=== PATIENT | female | born 1980 | race American Indian/Alaskan Native ===

== ENCOUNTER 2017-07-06 14:13 | Emergency (ER) | payer SELFPAY ==
[2017-07-06 14:44] VITALS: BP 114/75
[2017-07-06] MEDS ORDERED: TORADOL IM ONE (18:34)
--- NOTE | 2017-07-06 18:54 | Emergency Department Report ---
Blank Doc - Documentation Documentation: Patient is a 37-year-old female who is complaining of 3 weeks of left shoulder pain radiation down to the arm. She has decreased range of motion. Patient denies any trauma. X-ray will be performed. Of the cervical spine. This most likely represents a cervical radiculopathy
--- NOTE | 2017-07-06 19:23 | Emergency Department Report ---
ED Back Pain/Injury HPI - General Chief Complaint: Extremity Injury, Upper Stated Complaint: LEFT ARM PAIN Time Seen by Provider: 07/06/17 18:31 Source: patient Limitations: No Limitations - Related Data Allergies Allergy/AdvReac Type Severity Reaction Status Date / Time guanfacine Allergy Hives Verified 07/06/17 14:40 ED Review of Systems ROS: Stated complaint: LEFT ARM PAIN Other details as noted in HPI ED Past Medical Hx - Past Medical History Previous Medical History?: No - Surgical History Past Surgical History?: Yes Hx Cholecystectomy: Yes Additional Surgical History: tubal ligation - Social History Smoking Status: Never Smoker Substance Use Type: None ED Physical Exam - General Limitations: No Limitations ED Course Vital Signs 07/06/17 14:40 Temperature 98.3 F Pulse Rate 78 Respiratory 18 Rate Blood Pressure 114/75 O2 Sat by Pulse 99 Oximetry Critical care attestation.: If time is entered above; I have spent that time in minutes in the direct care of this critically ill patient, excluding procedure time. ED Disposition Condition: Stable
--- NOTE | 2017-07-06 19:27 | Emergency Department Report ---
ED Neck Pain/Injury HPI - General Chief Complaint: Extremity Injury, Upper Stated Complaint: LEFT ARM PAIN Time Seen by Provider: 07/06/17 18:31 Mode of arrival: Ambulatory Limitations: No Limitations - History of Present Illness Initial Comments: This is a 37-year-old female nontoxic, well nourished in appearance, no acute signs of distress presents to the ED with c/o of left upper back pain radiating to left shoulder and upper arm x3 weeks. Patient denies any trauma to the area. Patient denies any chest pain, shortness of breathe, fever, chills, headache, nausea, vomiting, back pain, stiff neck. Patient stated has decreased range of motion due to the pain. Patient denies any numbness of tingling. Patient stated pain is aching and a shooting sensation to the upper arm left side. Patient stated allergies to guanfacine. Patient denies significant past medical history. MD Complaint: upper back pain -: week(s) (3) Radiation: left shoulder Severity: mild Severity scale (0 -10): 8 Quality: aching Consistency: intermittent Improves With: immobilization Worsens With: movement of extremity, movement of neck Associated Symptoms: none. denies: headache, fever, numbness, tingling, weakness, vertigo, difficulty walking, swollen glands, difficulty swallowing, nausea, vomiting Treatments Prior to Arrival: none - Related Data Previous Rx's Medication Instructions Recorded Last Taken Type Cyclobenzaprine [Flexeril] 10 mg PO QHS PRN #7 tablet 07/06/17 Unknown Rx Ibuprofen [Motrin] 600 mg PO Q8H PRN #30 tablet 07/06/17 Unknown Rx Allergies Allergy/AdvReac Type Severity Reaction Status Date / Time guanfacine Allergy Hives Verified 07/06/17 14:40 ED Review of Systems ROS: Stated complaint: LEFT ARM PAIN Other details as noted in HPI Constitutional: denies: chills, fever Eyes: denies: eye pain, eye discharge, vision change ENT: denies: ear pain, throat pain Respiratory: denies: cough, shortness of breath, wheezing Cardiovascular: denies: chest pain, palpitations Endocrine: no symptoms reported Gastrointestinal: denies: abdominal pain, nausea, diarrhea Genitourinary: denies: urgency, dysuria, discharge Musculoskeletal: denies: back pain, joint swelling, arthralgia Skin: denies: rash, lesions Neurological: denies: headache, weakness, paresthesias Psychiatric: denies: anxiety, depression Hematological/Lymphatic: denies: easy bleeding, easy bruising ED Past Medical Hx - Past Medical History Previous Medical History?: No - Surgical History Past Surgical History?: Yes Hx Cholecystectomy: Yes Additional Surgical History: tubal ligation - Social History Smoking Status: Never Smoker Substance Use Type: None - Medications Home Medications: Home Medications Medication Instructions Recorded Confirmed Last Taken Type Cyclobenzaprine [Flexeril] 10 mg PO QHS PRN #7 tablet 07/06/17 Unknown Rx Ibuprofen [Motrin] 600 mg PO Q8H PRN #30 tablet 07/06/17 Unknown Rx ED Physical Exam - General Limitations: No Limitations General appearance: alert, in no apparent distress - Head Head exam: Present: atraumatic, normocephalic - Eye Eye exam: Present: normal appearance, PERRL, EOMI Pupils: Present: normal accommodation - ENT ENT exam: Present: normal exam, normal orophraynx, mucous membranes moist - Neck Neck exam: Present: normal inspection, tenderness, full ROM. Absent: meningismus, lymphadenopathy - Respiratory Respiratory exam: Present: normal lung sounds bilaterally. Absent: respiratory distress, wheezes, rales, rhonchi, stridor, chest wall tenderness, accessory muscle use, decreased breath sounds, prolonged expiratory - Cardiovascular Cardiovascular Exam: Present: regular rate, normal rhythm, normal heart sounds. Absent: bradycardia, tachycardia, irregular rhythm, systolic murmur, diastolic murmur, rubs, gallop - GI/Abdominal GI/Abdominal exam: Present: soft, normal bowel sounds. Absent: distended, tenderness, guarding, rebound, rigid, diminished bowel sounds - Rectal Rectal exam: Present: deferred - Extremities Exam Extremities exam: Present: normal inspection, full ROM, normal capillary refill. Absent: tenderness - Back Exam Back exam: Present: normal inspection, full ROM, paraspinal tenderness (left cervical region). Absent: tenderness, CVA tenderness (R), CVA tenderness (L), muscle spasm, vertebral tenderness, rash noted - Expanded Back Exam Expanded Back exam: Absent: saddle anesthesia Back exam: Negative Straight Leg Raising: Left, Right - Neurological Exam Neurological exam: Present: alert, oriented X3 - Psychiatric Psychiatric exam: Present: normal affect, normal mood - Skin Skin exam: Present: warm, dry, intact, normal color. Absent: rash ED Course Vital Signs 07/06/17 14:40 Temperature 98.3 F Pulse Rate 78 Respiratory 18 Rate Blood Pressure 114/75 O2 Sat by Pulse 99 Oximetry - Reevaluation(s) Reevaluation #1: 07/06/17 19:26 Patient is speaking in full sentences with no signs of distress noted. - Consultations Consultation #1: 07/06/17 19:26 Patient has been consulted with Dr. Chen about patient history, physical exam and examined and screened patient and agrees to ED plan of care and discharge plan of care. ED Medical Decision Making - Medical Decision Making This is a 37-year-old female that presents with cervical radiculopathy. Patient is stable was examined by me. There is no spinal tenderness. There is no cauda equina syndrome during examination. No bladder or bowel instability. Patient received Toradol 60 mg IM in the ED which preceded his symptoms has resolved and subsided. Patient is discharged with muscle relaxant and Motrin. Patient was instructed not to operate any machinery while taking muscle relaxant as they cause her drowsiness. Patient was referred to Follow-up with a primary care doctor in 3-5 days or if symptoms worsen and continue return to emergency room as soon as possible. At time of discharge, the patient does not seem toxic or ill in appearance. No acute signs of distress noted. Patient agrees to discharge treatment plan of care. No further questions noted by the patient. This chart is dictated with using [employer] Critical care attestation.: If time is entered above; I have spent that time in minutes in the direct care of this critically ill patient, excluding procedure time. ED Disposition Clinical Impression: Cervical radiculopathy Disposition: DC-01 TO HOME OR SELFCARE Is pt being admited?: No Does the pt Need Aspirin: No Condition: Stable Instructions: Cervical Radiculopathy (ED), Cyclobenzaprine (By mouth), Ibuprofen (By mouth) Additional Instructions: Follow-up with your primary care doctor in 3-5 days or if symptoms worsen such as bladder or bowel stability, chest pain, short of breath, numbness or tingling sensation in extremities, headache, dizziness, visual changes, nausea vomiting, or abdominal pain, return back to emergency room as was possible. Take ibuprofen and Flexeril as prescribed. Do not operate heavy machinery while taking Flexeril due to sedation Prescriptions: Cyclobenzaprine [Flexeril] 10 mg PO QHS PRN #7 tablet PRN Reason: Muscle Spasm Ibuprofen [Motrin] 600 mg PO Q8H PRN #30 tablet PRN Reason: Pain Referrals: PRIMARY CARE, [Referring] - 3-5 Days GINA WALSH MD [Staff Physician] - 3-5 Days [facility] [Outside] - 3-5 Days [facility] [Outside] - 3-5 Days Forms: Work/School Release Form(ED)
--- NOTE | 2017-07-06 20:09 | XRay Report ---
FINAL REPORT EXAM: XR SPINE CERVICAL 2-3V HISTORY: left cervical radiculopathy TECHNIQUE: Cervical spine 3 views PRIORS: None. FINDINGS: Vertebral bodies demonstrate normal height and alignment. The disk spaces are within normal limits. The facet joints demonstrate normal alignment. The spinous processes are intact. Craniocervical junction is unremarkable. C1 and C2 are intact. IMPRESSION: Negative cervical spine series.
== END 2017-07-06 20:35 | disposition home or self-care (01) ==
LOC: ED 14:13
DX: M54.12 Radiculopathy, cervical region (principal); Z90.49 Acquired absence of other specified parts of digestive tract; Z98.51 Tubal ligation status; Z88.8 Allergy status to other drugs, medicaments and biological substances
CPT/HCPCS: 72040; 93005; 93010; 96372; 99283; J1885

== ENCOUNTER 2020-02-09 00:47 | Emergency (ER) | payer MEDICAID ==
[2020-02-09 01:43] VITALS: BP 130/84
--- NOTE | 2020-02-09 02:15 | XRay Report ---
RIGHT ANKLE 3 VIEWS INDICATION / CLINICAL INFORMATION: right ankle pain. COMPARISON: None available. FINDINGS: BONES/JOINT(S): No acute fracture or subluxation. No significant degenerative changes. SOFT TISSUES: There is soft tissue swelling in the lateral ankle. ADDITIONAL FINDINGS: None. Signer Name: Stanley Wheeler MD Signed: 02/09/2020 2:11 AM Workstation Name: [email or web address]
[2020-02-09] MEDS ORDERED: HYDROcodone/ACETAMINOPHEN 5-325 MG TAB PO ONE (02:38)
--- NOTE | 2020-02-09 03:04 | Emergency Department Report ---
ED Lower Extremity HPI - General Chief Complaint: Extremity Injury, Lower Stated Complaint: ANKLE INJURY Time Seen by Provider: 02/09/20 02:40 Source: patient Mode of arrival: Ambulatory Limitations: No Limitations - History of Present Illness Initial Comments: Patient is a 40-year-old female who presents for right ankle pain status post falling down 2 steps tonight. Patient states she was traversing steps at home and missed the last 2 steps causing fall to ground and twisting ankle. . There is no LOC patient states decreased weightbearing however patient drove self to ED and ambulated to room under her own power. Now with pain and swelling to the right lateral ankle, there is no obvious deformity patient states pain is 5/10. Pain is exacerbated by attempted weightbearing. Pain is sharp and relieved by nothing. There is no numbness or tingling. MD Complaint: ankle injury - Related Data Previous Rx's Medication Instructions Recorded Last Taken Type Cyclobenzaprine [Flexeril] 10 mg PO QHS PRN #7 tablet 07/06/17 Unknown Rx Ibuprofen [Motrin] 600 mg PO Q8H PRN #30 tablet 07/06/17 Unknown Rx Naproxen 500 mg PO BID PRN #30 tablet 02/09/20 Unknown Rx Allergies Allergy/AdvReac Type Severity Reaction Status Date / Time guanfacine Allergy Hives Verified 07/06/17 14:40 ED Review of Systems ROS: Stated complaint: ANKLE INJURY Other details as noted in HPI Constitutional: denies: chills, fever Eyes: denies: eye pain, eye discharge, vision change ENT: denies: ear pain, throat pain Respiratory: denies: cough, shortness of breath, wheezing Cardiovascular: denies: chest pain, palpitations Endocrine: no symptoms reported Gastrointestinal: as per HPI Genitourinary: denies: urgency, dysuria, discharge Musculoskeletal: joint swelling (right lateral ankle ) Skin: denies: rash, lesions Neurological: denies: headache, weakness, paresthesias Psychiatric: denies: anxiety, depression Hematological/Lymphatic: denies: easy bleeding, easy bruising ED Past Medical Hx - Past Medical History Previous Medical History?: No - Surgical History Past Surgical History?: Yes Hx Cholecystectomy: Yes Additional Surgical History: tubal ligation. Left shoulder surgery - Social History Smoking Status: Current Every Day Smoker Substance Use Type: None - Medications Home Medications: Home Medications Medication Instructions Recorded Confirmed Last Taken Type Cyclobenzaprine [Flexeril] 10 mg PO QHS PRN #7 tablet 07/06/17 Unknown Rx Ibuprofen [Motrin] 600 mg PO Q8H PRN #30 tablet 07/06/17 Unknown Rx Naproxen 500 mg PO BID PRN #30 tablet 02/09/20 Unknown Rx ED Physical Exam - General Limitations: No Limitations General appearance: alert, in no apparent distress - Head Head exam: Present: atraumatic, normocephalic - Eye Eye exam: Present: normal appearance - ENT ENT exam: Present: mucous membranes moist - Neck Neck exam: Present: normal inspection - Respiratory Respiratory exam: Present: normal lung sounds bilaterally. Absent: respiratory distress - Cardiovascular Cardiovascular Exam: Present: regular rate, normal rhythm, normal heart sounds. Absent: systolic murmur, diastolic murmur, rubs, gallop - GI/Abdominal GI/Abdominal exam: Present: soft, normal bowel sounds. Absent: distended, tenderness, bruit, hernia - Rectal Rectal exam: Present: deferred - Extremities Exam Extremities exam: Present: normal inspection, full ROM, tenderness (right lateral ankle ), joint swelling (right lateral ankle ) - Expanded Lower Extremity Exam Right Ankle exam: Present: full ROM, tenderness, swelling. Absent: abrasion, laceration, ecchymosis, deformity, crepidus, dislocation, erythema, anterior draw sign Foot/Toe exam: Absent: tenderness, swelling Neuro vascular tendon exam: Absent: pulse deficit, motor deficit, sensory deficit, tendon deficit Gait: Positive: observed and limited by pain - Back Exam Back exam: Present: normal inspection, full ROM. Absent: tenderness - Neurological Exam Neurological exam: Present: alert, oriented X3, CN II-XII intact - Expanded Neurological Exam Expanded Patient oriented to: Present: person, place, time Speech: Present: fluid speech Motor strength exam: RUE: 5, LUE: 5, RLE: 5, LLE: 5 DTR: ankle (R): 2+, ankle (L): 2+ Best Eye Response ([place]): (4) open spontaneously Best Motor Response ([place]): (6) obeys commands Best Verbal Response ([place]): (5) oriented [place] Total: 15 - Psychiatric Psychiatric exam: Present: normal affect, normal mood - Skin Skin exam: Present: warm ED Course Vital Signs 02/09/20 01:40 Temperature 98.1 F Pulse Rate 84 Respiratory 18 Rate Blood Pressure 130/84 O2 Sat by Pulse 98 Oximetry ED Lower Extremity MDM - Radiology Data Radiology results: report reviewed, image reviewed Findings Reporting MD: Stanley Wheeler Dictation Time: February 09, 2020 01:11 Senior Net Engineer: Not available Medical Equipment Technician Date: RIGHT ANKLE 3 VIEWS INDICATION / CLINICAL INFORMATION: right ankle pain. COMPARISON: None available. FINDINGS: BONES/JOINT(S): No acute fracture or subluxation. No significant degenerative changes. SOFT TISSUES: There is soft tissue swelling in the lateral ankle. ADDITIONAL FINDINGS: None. Signer Name: Stanley Wheeler MD Signed: 02/09/2020 1:11 AM Workstation Name: [id number] - Medical Decision Making X-ray no fracture mild soft tissue swelling , this is an ankle sprain. Plan crutches, Joaquin wrap, rice therapy, NSAIDs follow-up with PCP in 2 to 3 days. Patient verbalizes agreement and understanding with discharge plan. Patient DC'd home in stable condition at this time. Critical care attestation.: If time is entered above; I have spent that time in minutes in the direct care of this critically ill patient, excluding procedure time. ED Disposition Clinical Impression: Ankle sprain Qualifiers: Encounter type: initial encounter Involved ligament of ankle: unspecified ligament Laterality: right Qualified Code(s): S93.401A - Sprain of unspecified ligament of right ankle, initial encounter Disposition: DC-01 TO HOME OR SELFCARE Is pt being admited?: No Does the pt Need Aspirin: No Condition: Stable Instructions: How to Use a Stirrup Ankle Brace, [id number], Ankle Sprain, Elastic Bandage and RICE Therapy Prescriptions: Naproxen 500 mg PO BID PRN #30 tablet PRN Reason: pain Referrals: JOSE MIGUEL WANG MD [Primary Care Provider] - 3-5 Days Forms: Work/School Release Form(ED) Time of Disposition: 03:06
== END 2020-02-09 03:00 | disposition home or self-care (01) ==
LOC: ED 00:47
DX: S93.401A Sprain of unspecified ligament of right ankle, initial encounter (principal); F17.200 Nicotine dependence, unspecified, uncomplicated; Z90.49 Acquired absence of other specified parts of digestive tract; Z98.51 Tubal ligation status; Z79.899 Other long term (current) drug therapy; Z88.8 Allergy status to other drugs, medicaments and biological substances; W10.9XXA Fall (on) (from) unspecified stairs and steps, initial encounter; Y93.89 Activity, other specified; Y92.89 Other specified places as the place of occurrence of the external cause; Y99.8 Other external cause status

== ENCOUNTER 2021-01-22 00:23 | Emergency (ER) | payer MEDICAID ==
[2021-01-22 01:08] VITALS: BP 150/90
--- NOTE | 2021-01-22 02:08 | XRay Report ---
XR finger(s) 2+V LT INDICATION: Injury. COMPARISON: No relevant prior imaging study available. FINDINGS: There are displaced fractures of the bases of the proximal phalanges of the left ring and little fing ers with significant dorsal angulation. No intra-articular extension is seen. No dislocation. There is mild soft tissue swelling about the fractures. IMPRESSION: 1. Fractures at the bases of the left little and ring finger proximal phalanges with dorsal angulatio n. Signer Name: Solomon Denise MD Signed: 01/22/2021 2:04 AM Workstation Name: [id number]
[2021-01-22] MEDS ORDERED: oxyCODONE /ACETAMINOPHEN 5-325MG TAB PO ONE (02:46)
[2021-01-22] MEDS ORDERED: IBUPROFEN 600 MG TAB PO ONE (02:46)
[2021-01-22] MEDS ORDERED: ONDANSETRON 4 MG ODT TAB PO ONE (02:46)
[2021-01-22] MEDS ORDERED: LIDOCAINE (1%) 10 MG/1 ML VIAL 20 ML MDV INFILTRATI ONE (02:47)
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
== END 2021-01-22 05:45 | disposition home or self-care (01) ==
LOC: ED 00:23
DX: S62.615A Displaced fracture of proximal phalanx of left ring finger, initial encounter for closed fracture (principal); S62.617A Displaced fracture of proximal phalanx of left little finger, initial encounter for closed fracture; S60.222A Contusion of left hand, initial encounter; Z98.51 Tubal ligation status; Z98.890 Other specified postprocedural states; Z88.8 Allergy status to other drugs, medicaments and biological substances; Y93.89 Activity, other specified; Y92.89 Other specified places as the place of occurrence of the external cause; Y99.8 Other external cause status
CPT/HCPCS: 99283; 99284; Q0162

== ENCOUNTER 2021-09-08 05:44 | Emergency (ER) | payer MEDICAID ==
[2021-09-08 05:55] VITALS: BP 106/77
--- NOTE | 2021-09-08 06:51 | XRay Report ---
RIGHT FOREARM 2 VIEW(S) INDICATION / CLINICAL INFORMATION: injury COMPARISON: None available. FINDINGS: No fracture, dislocation, or significant soft tissue abnormality is demonstrated. No radiopaque forei gn bodies are identified. IMPRESSION: 1. No acute findings. No significant abnormality. Signer Name: Donn Leo II, MD Signed: 09/08/2021 6:47 AM Workstation Name: [id number]
--- NOTE | 2021-09-08 07:43 | Emergency Department Report ---
ED Upper Extremity Inj HPI - General Chief Complaint: Extremity Injury, Upper Stated Complaint: RIGHT ARM INJURY/POSS BROKEN Time Seen by Provider: 09/08/21 07:37 Source: patient Mode of arrival: Ambulatory Limitations: No Limitations - Related Data Previous Rx's Medication Instructions Recorded Last Taken Type Cyclobenzaprine [Flexeril] 10 mg PO QHS PRN #7 tablet 07/06/17 Unknown Rx Naproxen 500 mg PO BID PRN #30 tablet 02/09/20 Unknown Rx HYDROcodone/APAP 5-325 [[place] 1 each PO Q6HR PRN #12 tablet 01/22/21 Unknown Rx 5/325] Ibuprofen [Motrin 600 MG tab] 600 mg PO Q8H PRN #30 tablet 01/22/21 Unknown Rx Allergies Allergy/AdvReac Type Severity Reaction Status Date / Time guanfacine Allergy Hives Verified 07/06/17 14:40 ED Review of Systems ROS: Stated complaint: RIGHT ARM INJURY/POSS BROKEN Other details as noted in HPI Comment: All other systems reviewed and negative ED Past Medical Hx - Past Medical History Previous Medical History?: No - Surgical History Past Surgical History?: Yes Hx Cholecystectomy: Yes Additional Surgical History: tubal ligation. Left shoulder surgery - Family History Family history: no significant - Social History Smoking Status: Never Smoker Substance Use Type: None - Medications Home Medications: Home Medications Medication Instructions Recorded Confirmed Last Taken Type Cyclobenzaprine [Flexeril] 10 mg PO QHS PRN #7 tablet 07/06/17 Unknown Rx Naproxen 500 mg PO BID PRN #30 tablet 02/09/20 Unknown Rx HYDROcodone/APAP 5-325 [[place] 1 each PO Q6HR PRN #12 tablet 01/22/21 Unknown Rx 5/325] Ibuprofen [Motrin 600 MG tab] 600 mg PO Q8H PRN #30 tablet 01/22/21 Unknown Rx ED Physical Exam - General Limitations: No Limitations General appearance: alert, in no apparent distress - Head Head exam: Present: atraumatic, normocephalic - Eye Eye exam: Present: normal appearance - ENT ENT exam: Present: mucous membranes moist - Neck Neck exam: Present: normal inspection - Respiratory Respiratory exam: Present: normal lung sounds bilaterally. Absent: respiratory distress - Cardiovascular Cardiovascular Exam: Present: regular rate, normal rhythm. Absent: systolic murmur, diastolic murmur, rubs, gallop - GI/Abdominal GI/Abdominal exam: Present: soft, normal bowel sounds - Extremities Exam Extremities exam: Present: normal inspection - Back Exam Back exam: Present: normal inspection - Neurological Exam Neurological exam: Present: alert, oriented X3 - Psychiatric Psychiatric exam: Present: normal affect, normal mood - Skin Skin exam: Present: warm, dry, intact, normal color. Absent: rash ED Course Vital Signs 09/08/21 05:55 Temperature 97.1 F L Pulse Rate 87 Respiratory 16 Rate Blood Pressure 106/77 O2 Sat by Pulse 98 Oximetry ED Medical Decision Making - Radiology Data Radiology results: report reviewed, image reviewed nap - Differential Diagnosis ro fx Critical care attestation.: If time is entered above; I have spent that time in minutes in the direct care of this critically ill patient, excluding procedure time. ED Disposition Clinical Impression: Contusion of arm, right, Fall Disposition: HOME / SELF CARE / HOMELESS Is pt being admited?: No Does the pt Need Aspirin: No Condition: Stable Instructions: Contusion, [id number] Additional Instructions: rest ice elevate motrin or tylenol for pain follow up with pcp if pain persists referral below Referrals: MERCEDES LOPEZ MD [Staff Physician] - 3-5 Days Forms: Work/School Release Form(ED) Time of Disposition: 07:42
== END 2021-09-08 08:10 | disposition home or self-care (01) ==
LOC: ED 05:44
DX: S40.021A Contusion of right upper arm, initial encounter (principal); W19.XXXA Unspecified fall, initial encounter; Y93.89 Activity, other specified; Y92.89 Other specified places as the place of occurrence of the external cause; Y99.8 Other external cause status
CPT/HCPCS: 99283

== ENCOUNTER 2021-09-30 01:30 | Emergency (ER) | payer MEDICAID | END 2021-09-30 03:42 | disposition left against medical advice (07) | LOC: ED 01:30 | DX: S82.899A Other fracture of unspecified lower leg, initial encounter for closed fracture (principal); Z53.21 Procedure and treatment not carried out due to patient leaving prior to being seen by health care provider; X58.XXXA Exposure to other specified factors, initial encounter; Y93.89 Activity, other specified; Y92.89 Other specified places as the place of occurrence of the external cause; Y99.8 Other external cause status ==

== ENCOUNTER 2021-10-03 20:47 | Emergency (ER) | payer MEDICAID ==
[2021-10-04] MEDS ORDERED: traMADol 50 MG TAB PO ONE (02:16)
--- NOTE | 2021-10-04 02:40 | Emergency Department Report ---
ED Lower Extremity HPI - General Chief Complaint: Extremity Problem,Nontraumatic Stated Complaint: LEFT FOOT PAIN Time Seen by Provider: 10/04/21 02:15 Source: patient Mode of arrival: Ambulatory Limitations: No Limitations - History of Present Illness Initial Comments: Patient 41-year-old female who presents for left lateral dorsal foot pain x2 weeks. Patient states unable to bear weight. Patient denies fall injury or trauma states she woke up with swollen and painful foot. There is no numbness no tingling no paralysis there is no laceration abrasions or bleeding. Patient amatory with crutches at this time. Pain rated at 5/10 exacerbated by attempted weightbearing. - Related Data Previous Rx's Medication Instructions Recorded Last Taken Type Cyclobenzaprine [Flexeril] 10 mg PO QHS PRN #7 tablet 07/06/17 Unknown Rx Naproxen 500 mg PO BID PRN #30 tablet 02/09/20 Unknown Rx HYDROcodone/APAP 5-325 [[place] 1 each PO Q6HR PRN #12 tablet 01/22/21 Unknown Rx 5/325] Ibuprofen [Motrin 600 MG tab] 600 mg PO Q8H PRN #30 tablet 01/22/21 Unknown Rx predniSONE [Deltasone] 20 mg PO DAILY #5 tablet 09/08/21 Unknown Rx traMADoL [Ultram] 50 mg PO Q6HR PRN #12 tablet 10/04/21 Unknown Rx Allergies Allergy/AdvReac Type Severity Reaction Status Date / Time guanfacine Allergy Hives Verified 07/06/17 14:40 ED Review of Systems ROS: Stated complaint: LEFT FOOT PAIN Other details as noted in HPI Constitutional: denies: chills, fever Eyes: denies: eye pain, eye discharge, vision change ENT: denies: ear pain, throat pain Respiratory: denies: cough, shortness of breath, wheezing Cardiovascular: denies: chest pain, palpitations Endocrine: no symptoms reported Gastrointestinal: denies: abdominal pain, nausea, diarrhea Genitourinary: denies: urgency, dysuria, discharge Musculoskeletal: denies: back pain, joint swelling, arthralgia Skin: denies: rash, lesions Neurological: denies: headache, weakness, paresthesias Psychiatric: denies: anxiety, depression Hematological/Lymphatic: denies: easy bleeding, easy bruising ED Past Medical Hx - Surgical History Hx Cholecystectomy: Yes Additional Surgical History: tubal ligation. Left shoulder surgery - Social History Smoking Status: Never Smoker Substance Use Type: None - Medications Home Medications: Home Medications Medication Instructions Recorded Confirmed Last Taken Type Cyclobenzaprine [Flexeril] 10 mg PO QHS PRN #7 tablet 07/06/17 Unknown Rx Naproxen 500 mg PO BID PRN #30 tablet 02/09/20 Unknown Rx HYDROcodone/APAP 5-325 [[place] 1 each PO Q6HR PRN #12 tablet 01/22/21 Unknown Rx 5/325] Ibuprofen [Motrin 600 MG tab] 600 mg PO Q8H PRN #30 tablet 01/22/21 Unknown Rx predniSONE [Deltasone] 20 mg PO DAILY #5 tablet 09/08/21 Unknown Rx traMADoL [Ultram] 50 mg PO Q6HR PRN #12 tablet 10/04/21 Unknown Rx ED Physical Exam - General Limitations: No Limitations General appearance: alert, in no apparent distress - Head Head exam: Present: atraumatic, normocephalic - Eye Eye exam: Present: normal appearance, EOMI Pupils: Present: normal accommodation - ENT ENT exam: Present: mucous membranes moist, TM's normal bilaterally - Neck Neck exam: Present: normal inspection, full ROM. Absent: tenderness, lymphadenopathy - Respiratory Respiratory exam: Present: normal lung sounds bilaterally. Absent: respiratory distress - Cardiovascular Cardiovascular Exam: Present: regular rate, normal rhythm, normal heart sounds. Absent: systolic murmur, diastolic murmur, rubs, gallop - GI/Abdominal GI/Abdominal exam: Present: soft, normal bowel sounds. Absent: tenderness, guarding - Rectal Rectal exam: Present: deferred, normal inspection - Extremities Exam Extremities exam: Present: full ROM, tenderness - Back Exam Back exam: Present: normal inspection, full ROM. Absent: CVA tenderness (R), C VA tenderness (L) - Neurological Exam Neurological exam: Present: alert, oriented X3, CN II-XII intact, reflexes normal. Absent: motor sensory deficit - Expanded Neurological Exam Expanded Patient oriented to: Present: person, place, time Speech: Present: fluid speech Cranial nerves: EOM's Intact: Normal Motor strength exam: RUE: 5, LUE: 5, RLE: 5, LLE: 5 Best Eye Response (Manquin): (4) open spontaneously Best Motor Response (Marleni): (6) obeys commands Best Verbal Response (Marleni): (5) oriented Marleni Total: 15 - Psychiatric Psychiatric exam: Present: normal affect, normal mood - Skin Skin exam: Present: warm, dry, intact, normal color. Absent: rash ED Course Vital Signs 10/03/21 20:54 Temperature 98.4 F Pulse Rate 103 H Respiratory 18 Rate Blood Pressure 129/77 O2 Sat by Pulse 98 Oximetry ED Lower Extremity MDM - Radiology Data Radiology results: report reviewed, image reviewed LEFT ANKLE 2 VIEW(S) INDICATION / CLINICAL INFORMATION: ankle pain swelling COMPARISON: None available. FINDINGS: Soft tissue swelling present along the medial aspect of the lower leg with subtle cortical step off along the medial cortical surface of the lower tibial metaphysis. A faint nondisplaced fracture line is not excluded. IMPRESSION: A faint nondisplaced fracture of the lower tibia involving the medial cortex is not excluded. CT of the left ankle recommended for further evaluation. Signer Name: Yunier Leo II, MD Signed: 10/04/2021 2:58 AM Workstation Name: [id number] Transcribed By: JERRICA Dictated By: YUNIER LEO II, MD Electronically Authenticated By: YUNIER LEO II, MD Signed Date/Time: 10/04/21257 DD/ 6 TD/TT: CT LEFT ANKLE WITHOUT CONTRAST INDICATION / CLINICAL INFORMATION: abnormal ankle xray. TECHNIQUE: All CT scans at this location are performed using CT dose reduction for ALARA by means of automated exposure control. CT of the left ankle was performed without administration of i ntravenous contrast. In addition to axial source images, coronal and sagittal MPR series were provided. COMPARISON: Left ankle radiograph 10/04/2021 FINDINGS: BONES: Thickness of acquisition may reduce sensitivity for nondisplaced fracture. No acute fracture. No osseous lesion. JOINT(S): No significant arthritis. No significant effusion. No intra-articular bodies. MUSCLES / TENDONS: No significant abnormality. SOFT TISSUES: Soft tissue edema noted along the medial aspect of the lower left leg. ADDITIONAL FINDINGS: None. IMPRESSION: 1. Soft tissue swelling along the medial aspect of the lower left leg but could reflect sequelae of contusion given the history of trauma. 2. No distinct fractures are demonstrated. Signer Name: Yunier Leo II, MD Signed: 10/04/2021 4:29 AM Workstation Name: [id number] Transcribed By: JERRICA Dictated By: YUNIER LEO II, MD Electronically Authenticated By: YUNIER LEO II, MD Signed Date/Time: 10/04/21428 DD/ 1 TD/TT: Critical care attestation.: If time is entered above; I have spent that time in minutes in the direct care of this critically ill patient, excluding procedure time. ED Disposition Clinical Impression: Ankle sprain Qualifiers: Encounter type: initial encounter Involved ligament of ankle: unspecified ligament Laterality: left Qualified Code(s): S93.402A - Sprain of unspecified ligament of left ankle, initial encounter Disposition: HOME / SELF CARE / HOMELESS Is pt being admited?: No Does the pt Need Aspirin: No Condition: Stable Instructions: Ankle Sprain, Phase I Rehab-Sports[facility] Additional Instructions: Take medication as prescribed, follow-up with orthopedic doctor in 2 to 3 days. Return to emergency department should symptoms worsen. Prescriptions: traMADoL [Ultram] 50 mg PO Q6HR PRN #12 tablet PRN Reason: Pain Referrals: MARIAA GALDAMEZ MD [Staff Physician] - 3-5 Days Forms: Work/School Release Form(ED) Time of Disposition: 04:41
--- NOTE | 2021-10-04 03:03 | XRay Report ---
LEFT ANKLE 2 VIEW(S) INDICATION / CLINICAL INFORMATION: ankle pain swelling COMPARISON: None available. FINDINGS: Soft tissue swelling present along the medial aspect of the lower leg with subtle cortical step off a long the medial cortical surface of the lower tibial metaphysis. A faint nondisplaced fracture line i s not excluded. IMPRESSION: A faint nondisplaced fracture of the lower tibia involving the medial cortex is not excluded. CT of t he left ankle recommended for further evaluation. Signer Name: Donn Leo II, MD Signed: 10/04/2021 2:58 AM Workstation Name: [id number]
--- NOTE | 2021-10-04 04:33 | Cat Scan Report ---
CT LEFT ANKLE WITHOUT CONTRAST INDICATION / CLINICAL INFORMATION: abnormal ankle xray. TECHNIQUE: All CT scans at this location are performed using CT dose reduction for ALARA by means of automated exposure control. CT of the left ankle was performed without administration of intravenous contrast. In addition to axial source images, coronal and sagittal MPR series were provided. COMPARISON: Left ankle radiograph 10/04/2021 FINDINGS: BONES: Thickness of acquisition may reduce sensitivity for nondisplaced fracture. No acute fracture. No osseous lesion. JOINT(S): No significant arthritis. No significant effusion. No intra-articular bodies. MUSCLES / TENDONS: No significant abnormality. SOFT TISSUES: Soft tissue edema noted along the medial aspect of the lower left leg. ADDITIONAL FINDINGS: None. IMPRESSION: 1. Soft tissue swelling along the medial aspect of the lower left leg but could reflect sequelae of c ontusion given the history of trauma. 2. No distinct fractures are demonstrated. Signer Name: Donn Leo II, MD Signed: 10/04/2021 4:29 AM Workstation Name: [id number]
[2021-10-04 04:51] VITALS: BP 132/81
== END 2021-10-04 04:51 | disposition home or self-care (01) ==
LOC: ED 20:47
DX: S93.402A Sprain of unspecified ligament of left ankle, initial encounter (principal); Z90.49 Acquired absence of other specified parts of digestive tract; Z91.09 Other allergy status, other than to drugs and biological substances; X58.XXXA Exposure to other specified factors, initial encounter; Y93.89 Activity, other specified; Y92.89 Other specified places as the place of occurrence of the external cause; Y99.8 Other external cause status
CPT/HCPCS: 99284

== ENCOUNTER 2021-10-20 09:13 | Emergency (ER) | payer MEDICAID ==
[2021-10-20 09:27] VITALS: BP 146/83
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
--- NOTE | 2021-10-20 10:34 | Emergency Department Report ---
ED Lower Extremity HPI - General Chief Complaint: Extremity Injury, Lower Stated Complaint: LEG INJURY Time Seen by Provider: 10/20/21 09:42 Source: patient Mode of arrival: Ambulatory Limitations: No Limitations - History of Present Illness Initial Comments: 41 yo comes to ER with LLE pain sp sprain. Has been seen here recently. EMR reviewed Reports that she keeps falling for unknown reasons. - Related Data Previous Rx's Medication Instructions Recorded Last Taken Type Cyclobenzaprine [Flexeril] 10 mg PO QHS PRN #7 tablet 07/06/17 Unknown Rx Naproxen 500 mg PO BID PRN #30 tablet 02/09/20 Unknown Rx HYDROcodone/APAP 5-325 [[place]win 1 each PO Q6HR PRN #12 tablet 01/22/21 Unknown Rx 5/325] Ibuprofen [Motrin 600 MG tab] 600 mg PO Q8H PRN #30 tablet 01/22/21 Unknown Rx predniSONE [Deltasone] 20 mg PO DAILY #5 tablet 09/08/21 Unknown Rx traMADoL [Ultram] 50 mg PO Q6HR PRN #12 tablet 10/04/21 Unknown Rx Allergies Allergy/AdvReac Type Severity Reaction Status Date / Time guanfacine Allergy Hives Verified 07/06/17 14:40 ED Review of Systems ROS: Stated complaint: LEG INJURY Other details as noted in HPI Comment: All other systems reviewed and negative ED Past Medical Hx - Past Medical History Previous Medical History?: No - Surgical History Past Surgical History?: Yes Hx Cholecystectomy: Yes Additional Surgical History: tubal ligation. Left shoulder surgery - Family History Family history: no significant - Social History Smoking Status: Current Every Day Smoker Substance Use Type: None - Medications Home Medications: Home Medications Medication Instructions Recorded Confirmed Last Taken Type Cyclobenzaprine [Flexeril] 10 mg PO QHS PRN #7 tablet 07/06/17 Unknown Rx Naproxen 500 mg PO BID PRN #30 tablet 02/09/20 Unknown Rx HYDROcodone/APAP 5-325 [Goodwin 1 each PO Q6HR PRN #12 tablet 01/22/21 Unknown Rx 5/325] Ibuprofen [Motrin 600 MG tab] 600 mg PO Q8H PRN #30 tablet 01/22/21 Unknown Rx predniSONE [Deltasone] 20 mg PO DAILY #5 tablet 09/08/21 Unknown Rx traMADoL [Ultram] 50 mg PO Q6HR PRN #12 tablet 10/04/21 Unknown Rx ED Physical Exam - General Limitations: No Limitations General appearance: alert, in no apparent distress - Head Head exam: Present: atraumatic, normocephalic - Eye Eye exam: Present: normal appearance - ENT ENT exam: Present: mucous membranes moist - Neck Neck exam: Present: normal inspection - Respiratory Respiratory exam: Present: normal lung sounds bilaterally. Absent: respiratory distress - Cardiovascular Cardiovascular Exam: Present: regular rate, normal rhythm. Absent: systolic murmur, diastolic murmur, rubs, gallop - GI/Abdominal GI/Abdominal exam: Present: soft, normal bowel sounds - Extremities Exam Extremities exam: Present: normal inspection - Expanded Lower Extremity Exam Left Lower Leg exam: Present: swelling - Back Exam Back exam: Present: normal inspection - Neurological Exam Neurological exam: Present: alert, oriented X3 - Psychiatric Psychiatric exam: Present: normal affect, normal mood - Skin Skin exam: Present: warm, dry, intact, normal color. Absent: rash ED Course Vital Signs 10/20/21 09:23 Temperature 98.9 F Pulse Rate 93 H Respiratory 14 Rate Blood Pressure 146/83 O2 Sat by Pulse 98 Oximetry ED Lower Extremity MDM - Radiology Data Radiology results: report reviewed, image reviewed - Medical Decision Making Vital Signs 10/20/21 09:23 Temperature 98.9 F Pulse Rate 93 H Respiratory 14 Rate Blood Pressure 146/83 O2 Sat by Pulse 98 Oximetry xray noted pt has been called at least 5 different times and is not in waiting room. - Differential Diagnosis ro fx Critical care attestation.: If time is entered above; I have spent that time in minutes in the direct care of this critically ill patient, excluding procedure time. ED Disposition Clinical Impression: Lower leg fracture Disposition: LEFT WITHOUT BEING SEEN Is pt being admited?: No Does the pt Need Aspirin: No Condition: Stable
== END 2021-10-20 12:40 | disposition left against medical advice (07) ==
LOC: ED 09:13
DX: S82.92XA Unspecified fracture of left lower leg, initial encounter for closed fracture (principal); Z53.21 Procedure and treatment not carried out due to patient leaving prior to being seen by health care provider; F17.200 Nicotine dependence, unspecified, uncomplicated; Z90.49 Acquired absence of other specified parts of digestive tract; Z98.51 Tubal ligation status; Z88.8 Allergy status to other drugs, medicaments and biological substances; Z98.890 Other specified postprocedural states; Z79.899 Other long term (current) drug therapy; W18.39XA Other fall on same level, initial encounter; Y93.89 Activity, other specified; Y92.89 Other specified places as the place of occurrence of the external cause; Y99.8 Other external cause status
CPT/HCPCS: 99282